=== PATIENT | female | born 1960 | race Caucasian/White ===

== ENCOUNTER → 2016-08-03 | Outpatient (CLI) | payer BC ==
--- NOTE | 2016-08-03 16:18 | MY ---
EXAMINATION: Bilateral digital mammography utilizing CAD. HISTORY: Screening exam. Comparison is made to previous studies dated 01/01/2013, 12/28/2011, 008. FINDINGS: Bilateral scattered fibroglandular densities. No suspicious calcifications, masses or a rchitectural distortions. No pathologic appearing lymph nodes, no abnormal skin thickening or nipp le inversion. CAD highlighted regions appear normal at this time. IMPRESSION: BI-RADS category I - negative mammogram. Continued screening according to ACR-ACS gu idelines suggested. THE FALSE-NEGATIVE RATE OF MAMMOGRAM IS APPROXIMATELY 10%. MANAGEMENT OF A PALPABLE ABNORMALITY MUST BE BASED UPON CLINICAL GROUNDS. SENSITIVITY FOR DETECTION OF ABNORMALITIES IN DENSE BREASTS IS LOW. NOTE: A letter will be sent to the patient regarding findings. [facility] -- [place] [phone] - FAX [phone]
== END ==
LOC: MW.MAM 08:36
PROVIDERS: ATTEND Obstetrics & Gynecology
DX: Z12.31 Encounter for screening mammogram for malignant neoplasm of breast (principal)
CPT/HCPCS: G0202; G0202-26

== ENCOUNTER 2019-11-17 02:17 | Emergency (ER) | payer BC ==
[2019-11-17] MEDS ORDERED: Sodium Chloride 0.9% 2.5 ML Syringe FLUSH PRN (02:43)
[2019-11-17] MEDS ORDERED: Sodium Chloride 0.9% 10 ML SDV IV PRN (02:43)
[2019-11-17] MEDS ORDERED: fentaNYL 50 MCG/ML SDV IVPUSH ONE (02:43)
[2019-11-17] MEDS ORDERED: Ondansetron 4 MG/2 ML SDV IVPUSH ONE (02:43)
[2019-11-17] MEDS ORDERED: Sodium Chloride 0.9% 10 ML Syringe FLUSH PRN (02:43)
[2019-11-17 03:16] LABS: BLOOD UREA NITROGEN,BUN 12 mg/dL (7.0-18.0); CARBON DIOXIDE,CO2 23.6 mmol/L (21.0-32.0); CHLORIDE,CL 102 mmol/L (98-107); GLUCOSE RANDOM 141 mg/dL (74-106); POTASSIUM,K 3.9 mmol/L (3.5-5.1); SODIUM,NA 137 mmol/L (136-145)
[2019-11-17] MEDS ORDERED: Iopamidol 755 Mg/ML 100 ML Bottle IVPUSH ONE (04:12)
--- NOTE | 2019-11-17 04:46 | CT ---
INDICATION: Left lower quadrant pain. COMPARISON: None available TECHNIQUE: CT examination of the abdomen and pelvis was performed with the uneventful intravenous administration of 100 cc of Isovue 370 while 3 mm thick axial sections were obtained from the lung bases through the pubic symphysis. Oral contrast was not administered. Please note that all CT scans at this facility use dose modulation, iterative reconstruction, and/or weight-based dosing when appropriate to reduce radiation dose to as low as reasonably achievable. FINDINGS: In the abdomen, the liver is slightly low in density, representing mild fatty infiltration. There is no sign of mass. The liver is mildly enlarged, measuring 23.5 centimeters in length. The spleen is mildly enlarged, measuring 12.6 centimeters in length. The pancreas and adrenals are normal in appearance. The kidneys are normal in appearance. The gallbladder is absent, consistent with cholecystectomy. The common bile duct is mildly dilated at 8 millimeters, consistent with post cholecystectomy status. The abdominal aorta is normal in caliber with no sign of dilatation. There is no sign of retroperitoneal mass or adenopathy. The stomach, loops of small bowel, and right colon in the abdomen are normal in appearance. There is mild diverticulosis of the transverse colon and prominent diverticulosis of the descending colon with no sign of diverticulitis. There is a moderate-sized fat containing left periumbilical hernia. In the pelvis, the appendix is nonvisualized, but there is no sign of an inflammatory process in the area of the appendix. There is moderate inflammatory reaction around the midportion of the sigmoid colon consistent with diverticulitis. There is prominent sigmoid diverticulosis. There is no sign of any fluid collection to suggest an abscess. There is no sign of any free fluid or free air to suggest perforation. The uterus and adnexal regions are normal in appearance. The urinary bladder is normal in appearance. There is no sign of pelvic or inguinal mass or adenopathy. There is no sign of free air or free fluid in the abdomen or pelvis. There is mild dependent atelectasis in the posterior lung bases. There is prominent L3-4 and L4-5 disc degenerative disease. There is mild disc degenerative disease throughout the rest of the lumbar spine. There is minimal scoliosis of the lumbar spine convex towards the left. IMPRESSION: CT of the abdomen shows a mild hepatosplenomegaly with mild fatty infiltration of the liver. The appearance is nonspecific. Status post cholecystectomy with mild dilatation of the common bile duct consistent with post cholecystectomy status. Prominent descending and mild transverse colonic diverticulosis with no sign of diverticulitis. CT of the pelvis shows moderate mid sigmoid diverticulitis without abscess or perforation. Prominent sigmoid diverticulosis. Moderate fat containing left periumbilical hernia. Please note that all CT scans at this facility use dose modulation, iterative reconstruction, and/or weight-based dosing when appropriate to reduce radiation dose to as low as reasonably achievable. Dictated by Christophe Diallo MD @ Nov 17 2019 4:38AM Signed by Dr. Christophe Diallo @ Nov 17 2019 4:45AM
--- NOTE | 2019-11-17 05:05 | EDM.PDOC ---
ED HPI GENERAL MEDICAL PROBLEM - General Chief Complaint: Abdominal Pain Stated Complaint: ABD PAIN Time Seen by Provider: 11/17/19 02:18 Source of Information: Reports: Patient History Limitations: Reports: No Limitations - History of Present Illness INITIAL COMMENTS - FREE TEXT/NARRATIVE: 59-year-old female with past medical history of hypothyroidism, status post cholecystectomy and appendectomy presenting with abdominal pain. She reports a 4-day history of left lower quadrant abdominal pain, steadily worsening over the past 1 to 2 days. This is been accompanied by nausea without emesis. Nothing makes her pain better or worse, nonradiating, constant, described as "aching" and radiating into the left inguinal crease. No history of prior pain. No other complaints. Abdomen Pain Score (Numeric/FACES): 2 - Related Data Allergies Allergy/AdvReac Type Severity Reaction Status Date / Time povidone-iodine Allergy Rash Verified 11/17/19 02:32 [From Betadine] soap [From Betadine] Allergy Rash Verified 11/17/19 02:32 Home Meds: Home Meds Dextrin [Fiber] 1 dose PO DAILY 05/08/15 [History] Levothyroxine Sodium [Synthroid] 150 mcg PO DAILY 05/08/15 [History] Past Medical History HEENT History: Reports: None Cardiovascular History: Reports: None Respiratory History: Reports: None Gastrointestinal History: Reports: Hiatal Hernia Genitourinary History: Reports: None COLOR SPECIALIST History: Reports: Musculoskeletal History: Reports: None Neurological History: Reports: None Psychiatric History: Reports: None Endocrine/Metabolic History: Reports: Hypothyroidism, Obesity/BMI 30+ Other Endocrine/Metabolic History: hypothyroidism Insulin Pump Model and Packer And Carry Out: None Hematologic History: Reports: None Immunologic History: Reports: None Oncologic (Cancer) History: Reports: None Dermatologic History: Reports: None - Infectious Disease History Infectious Disease History: Reports: None - Past Surgical History Head Surgeries/Procedures: Reports: None GI Surgical History: Reports: Cholecystectomy, Colonoscopy, Hernia Repair/Other Female Surgical History: Reports: Section Social & Family History - Family History Family Medical History: Noncontributory - Tobacco Use Smoking Status *Q: Never Smoker - Caffeine Use Caffeine Use: Reports: None - Recreational Drug Use Recreational Drug Use: No ED ROS GENERAL - Review of Systems Review Of Systems: See Below Constitutional: Denies: Fever, Chills HEENT: Reports: No Symptoms Respiratory: Denies: Shortness of Breath Cardiovascular: Denies: Chest Pain Endocrine: Reports: No Symptoms GI/Abdominal: Reports: Abdominal Pain, Nausea. Denies: Black Stool, Bloody Stool, Diarrhea, Hematemesis, Hematochezia, Melena, Vomiting : Denies: Discharge, Dysuria, Flank Pain, Hematuria Musculoskeletal: Denies: Back Pain Skin: Denies: Lesions Neurological: Denies: Headache Psychiatric: Reports: No Symptoms Hematologic/Lymphatic: Reports: No Symptoms Immunologic: Reports: No Symptoms ED EXAM, GI/ABD - Physical Exam Exam: See Below Text/Narrative:: Vital signs reviewed. Nursing notes reviewed. Constitutional: Awake, alert, non-distressed. Head: Normocephalic, atraumatic. Eyes: EOMI, conjunctiva normal, no discharge, no scleral icterus. Ears, Nose, Throat: External ears and nose normal, moist oral mucosa. Cardiovascular: Tachycardic, 2+ radial pulse, capillary refill less than 2 seconds. Pulmonary: normal work of breathing, no accessory muscle use. Abdomen/GI: Soft, mild tenderness in the left lower quadrant, nondistended, no guarding or rigidity, no masses. No CVA tenderness Musculoskeletal: No deformities. Integumentary: Appropriate color for ethnicity, warm, dry, no pallor or jaundice , no rash. Neurologic: Alert, answering questions appropriately, normal speech, no facial droop, moving all extremities well. Psychiatric: Appropriate mood and affect, normal thought process. Course - Vital Signs Text/Narrative:: 59-year-old female with abdominal pain and nausea. Patient well-appearing, looks nontoxic. Differential diagnosis includes but is not limited to: Diverticulitis, UTI, kidney stone, pyelonephritis, hernia, bowel obstruction, perforation, intra-abdominal infection, epiploic appendagitis , etc. Mildly tachycardic on arrival, this resolved spontaneously. IV access established and labs sent. CBC shows a very mild leukocytosis. Lactate is normal. Electrolytes and renal function normal. Urinalysis shows trace ketones but no blood or evidence of infection. No urinary symptoms to suggest cystitis or pyelonephritis. Treated with IV fentanyl with good relief of pain. CT abdomen/pelvis shows uncomplicated sigmoid diverticulitis. No other complications noted. Pain is well controlled, not actively vomiting, afebrile, no systemic signs of illness to warrant IV antibiotics or inpatient admission. Stable to discharge home with outpatient oral antibiotics (Augmentin), over-the- counter Tylenol Motrin, primary care follow-up. Strict ED return precautions provided. Discharged in good condition. Last Recorded V/S: Last Vital Signs Temp 36 C L 11/17/19 05:15 Pulse 88 11/17/19 05:15 Resp 18 11/17/19 05:15 BP 126/71 11/17/19 05:15 Pulse Ox 98 11/17/19 05:15 - Orders/Labs/Meds Orders: Active Orders 24 hr Category Date Time Status Cardiac Monitoring [RC] . DIRECTED Care 11/17/19 02:42 Active Pulse Oximetry [RC] ASDIRECTED Care 11/17/19 02:42 Active Peripheral IV Insertion Adult [OM.PC] Stat Oth 11/17/19 02:43 Ordered Labs: Laboratory Tests 11/17/19 11/17/19 11/17/19 Range/Units 02:30 02:50 02:50 WBC 11.11 H (4.0-11.0) K/uL RBC 4.98 (4.30-5.90) M/uL Hgb 14.7 (12.0-16.0) g/dL Hct 45.0 (36.0-46.0) % MCV 90.4 (80.0-98.0) fL MCH 29.5 (27.0-32.0) pg MCHC 32.7 (31.0-37.0) g/dL RDW Std Deviation 45.4 (28.0-62.0) fl RDW Coeff of Edmund 14 (11.0-15.0) % Plt Count 174 (150-400) K/uL MPV 9.40 (7.40-12.00) fL Neut % (Auto) 69.6 (48.0-80.0) % Lymph % (Auto) 19.2 (16.0-40.0) % [place] % (Auto) 8.6 (0.0-15.0) % Eos % (Auto) 2.3 (0.0-7.0) % Baso % (Auto) 0.3 (0.0-1.5) % Neut # (Auto) 7.7 H (1.4-5.7) K/uL Lymph # (Auto) 2.1 (0.6-2.4) K/uL [place] # (Auto) 1.0 H (0.0-0.8) K/uL Eos # (Auto) 0.3 (0.0-0.7) K/uL Baso # (Auto) 0.0 (0.0-0.1) K/uL Nucleated RBC % 0.0 /100WBC Nucleated RBCs # 0 K/uL Lactate (0.20-2.00) mmol/L Sodium 137 (136-145) mmol/L Potassium 3.9 (3.5-5.1) mmol/L Chloride 102 (98-107) mmol/L Carbon Dioxide 23.6 (21.0-32.0) mmol/L BUN 12 (7.0-18.0) mg/dL Creatinine 0.8 (0.6-1.0) mg/dL Est Cr Clr Drug Dosing 79.13 mL/min Estimated GFR (MDRD) > 60.0 ml/min Glucose 141 H (74-106) mg/dL Calcium 8.5 (8.5-10.1) mg/dL Total Bilirubin 0.8 (0.2-1.0) mg/dL AST 27 (15-37) IU/L ALT 42 (14-63) IU/L Alkaline Phosphatase 80 (46-116) U/L Total Protein 7.3 (6.4-8.2) g/dL Albumin 3.3 L (3.4-5.0) g/dL Globulin 4.0 (2.6-4.0) g/dL Albumin/Globulin Ratio 0.8 L (0.9-1.6) Urine Color YELLOW Urine Appearance CLEAR Urine pH 7.0 (5.0-8.0) Ur Specific [place] 1.020 (1.001-1.035) Urine Protein NEGATIVE (NEGATIVE) mg/dL Urine Glucose (UA) NEGATIVE (NEGATIVE) mg/dL Urine Ketones TRACE H (NEGATIVE) mg/dL Urine Occult Blood NEGATIVE (NEGATIVE) Urine Nitrite NEGATIVE (NEGATIVE) Urine Bilirubin NEGATIVE (NEGATIVE) Urine Urobilinogen 1.0 (<2.0) EU/dL Ur Leukocyte Esterase NEGATIVE (NEGATIVE) 11/17/19 Range/Units 02:50 WBC (4.0-11.0) K/uL RBC (4.30-5.90) M/uL Hgb (12.0-16.0) g/dL Hct (36.0-46.0) % MCV (80.0-98.0) fL MCH (27.0-32.0) pg MCHC (31.0-37.0) g/dL RDW Std Deviation (28.0-62.0) fl RDW Coeff of Edmund (11.0-15.0) % Plt Count (150-400) K/uL MPV (7.40-12.00) fL Neut % (Auto) (48.0-80.0) % Lymph % (Auto) (16.0-40.0) % [place] % (Auto) (0.0-15.0) % Eos % (Auto) (0.0-7.0) % Baso % (Auto) (0.0-1.5) % Neut # (Auto) (1.4-5.7) K/uL Lymph # (Auto) (0.6-2.4) K/uL [place] # (Auto) (0.0-0.8) K/uL Eos # (Auto) (0.0-0.7) K/uL Baso # (Auto) (0.0-0.1) K/uL Nucleated RBC % /100WBC Nucleated RBCs # K/uL Lactate 1.7 (0.20-2.00) mmol/L Sodium (136-145) mmol/L Potassium (3.5-5.1) mmol/L Chloride (98-107) mmol/L Carbon Dioxide (21.0-32.0) mmol/L BUN (7.0-18.0) mg/dL Creatinine (0.6-1.0) mg/dL Est Cr Clr Drug Dosing mL/min Estimated GFR (MDRD) ml/min Glucose (74-106) mg/dL Calcium (8.5-10.1) mg/dL Total Bilirubin (0.2-1.0) mg/dL AST (15-37) IU/L ALT (14-63) IU/L Alkaline Phosphatase (46-116) U/L Total Protein (6.4-8.2) g/dL Albumin (3.4-5.0) g/dL Globulin (2.6-4.0) g/dL Albumin/Globulin Ratio (0.9-1.6) Urine Color Urine Appearance Urine pH (5.0-8.0) Ur Specific [place] (1.001-1.035) Urine Protein (NEGATIVE) mg/dL Urine Glucose (UA) (NEGATIVE) mg/dL Urine Ketones (NEGATIVE) mg/dL Urine Occult Blood (NEGATIVE) Urine Nitrite (NEGATIVE) Urine Bilirubin (NEGATIVE) Urine Urobilinogen (<2.0) EU/dL Ur Leukocyte Esterase (NEGATIVE) Meds: Medications Discontinued Medications Generic Name Dose Route Start Last Admin Trade Name Freq PRN Reason Stop Dose Admin Fentanyl 50 mcg 11/17/19 02:43 11/17/19 02:57 Fentanyl IVPUSH 11/17/19 02:44 50 mcg ONETIME ONE Administration Iopamidol 100 ml 11/17/19 04:12 11/17/19 04:13 Isovue-370 (76%) IVPUSH 11/17/19 04:13 100 ml ONETIME ONE Administration Ondansetron HCl 4 mg 11/17/19 02:43 11/17/19 02:57 Zofran IVPUSH 11/17/19 02:44 4 mg ONETIME ONE Administration Sodium Chloride 10 ml 11/17/19 02:43 Saline Flush FLUSH ASDIRECTED PRN Keep Vein Open Sodium Chloride 2.5 ml 11/17/19 02:43 Saline Flush FLUSH ASDIRECTED PRN Keep Vein Open Sodium Chloride 10 ml 11/17/19 02:43 Normal Saline IV ASDIRECTED PRN IV Use Departure - Departure Time of Disposition: 05:05 Disposition: Home, Self-Care 01 Condition: Good Clinical Impression: Sigmoid diverticulitis - Discharge Information *PRESCRIPTION DRUG MONITORING PROGRAM REVIEWED*: Not Applicable *COPY OF PRESCRIPTION DRUG MONITORING REPORT IN PATIENT BLAISE: Not Applicable Instructions: Diverticulitis Referrals: Fahad Child MD [Primary Care Provider] - 1 Week (As needed for follow-up of symptoms.) Forms: ED Department Discharge Additional Instructions: Thank you for choosing the [facility] emergency department in [place] for your medical needs today. It was a pleasure caring for you. You were seen in the emergency department for abdominal pain and nausea. You were diagnosed with diverticulitis. Be sure to take all of your antibiotic medication, even if you are feeling better. I recommend [id number] acetaminophen and ibuprofen for pain. You should follow-up with your doctor in the next few days if you are not feeling better. Please return the emergency department immediately if your symptoms worsen or if you feel worse. The following information is given to patients seen in the emergency department who are being discharged. This information is to outline your options for follow -up care. We provide all patients seen in our emergency department with a follow -up referral. The need for follow-up, as well as the timing and circumstances, are variable depending upon the specifics of your emergency department visit. If you don't have a primary care physician on staff, we will provide you with a referral. We always advise you to contact your personal physician following an emergency department visit to inform them of the circumstance of the visit and for follow-up with them and/or the need for any referrals to a consulting specialist. The emergency department will also refer you to a specialist when appropriate. This referral assures that you have the opportunity for follow-up care with a specialist. All of these measure are taken in an effort to provide you with optimal care, which includes your follow-up. Under all circumstances we always encourage you to contact your private physician who remains a resource for coordinating your care. When calling for follow-up care, please make the office aware that this follow-up is from your recent emergency room visit. If for any reason you are refused follow-up, please contact the [facility] Emergency Department at and asked to speak to the emergency department charge nurse. If you do not have a primary care physician that is caring for you, you can contact these clinics below to set up an appointment to establish care: [facility] - [facility] [address] [place] [id number] [facility] [address] [place] [id number] Sepsis Event Note (ED) - Evaluation Sepsis Screening Result: No Definite Risk - Focused Exam Vital Signs: Vital Signs Temp Pulse Resp BP Pulse Ox 11/17/19 05:15 36 C L 88 18 126/71 98 11/17/19 04:22 90 18 126/69 95 11/17/19 02:30 36.1 C 108 H 18 149/78 H 98 - My Orders Last 24 Hours: My Active Orders 11/17/19 02:42 Cardiac Monitoring [RC] . DIRECTED Pulse Oximetry [RC] ASDIRECTED 11/17/19 02:43 Peripheral IV Insertion Adult [OM.PC] Stat - Assessment/Plan Last 24 Hours: My Active Orders 11/17/19 02:42 Cardiac Monitoring [RC] . DIRECTED Pulse Oximetry [RC] ASDIRECTED 11/17/19 02:43 Peripheral IV Insertion Adult [OM.PC] Stat
[2019-11-17 05:24] VITALS: BP 126/71; PULSE 88
== END 2019-11-17 05:15 | disposition home or self-care (01) ==
LOC: MW.ED 02:17
DX: K57.32 Diverticulitis of large intestine without perforation or abscess without bleeding (principal); E03.9 Hypothyroidism, unspecified; E66.9 Obesity, unspecified; Z68.39 Body mass index [BMI] 39.0-39.9, adult; Z88.8 Allergy status to other drugs, medicaments and biological substances; Z91.048 Other nonmedicinal substance allergy status; Z79.899 Other long term (current) drug therapy
CPT/HCPCS: 36415; 74177; 80053; 81003; 83605; 85025; 96374; 96375; 99284; J2405; J3010; Q9967; 99283